=== PATIENT | male | born 1995 | race African-American/Black ===

== ENCOUNTER 2020-05-29 20:03 | Emergency (ER) | payer MEDICAID ==
[~2020-05-29] VITALS: Ht 170.2 cm; Wt 63.0 kg
[2020-05-29] MEDS ORDERED: SODIUM CHLORIDE 0.9% 1,000 ML IV ONE (21:15)
[2020-05-29 21:28] LABS: BASOPHILS % 0.7 % (0.0-2.0); EOSINOPHILS % 2.2 % (0.0-5.0); HEMOGLOBIN. 14.9 g/dL (14.0-18.0); LYMPHOCYTES % 53.2 % (20.0-50.0); MEAN CORPUSCULAR HEMOGLOBIN 33.2 pg (28.0-32.0); MEAN CORPUSCULAR VOLUME 95.8 fL (80.0-94.0); MEAN PLATELET VOLUME 8.5 fl (7.4-10.4); MONOCYTES % 10.2 % (2.0-8.0); NEUTROPHILS % 33.7 % (40.0-76.0); PLATELET 185 x1000/uL (130-400); RED BLOOD CELL COUNT 4.49 mill/uL (4.7-6.1)
[2020-05-29 21:33] LABS: CHLORIDE 104 mEq/L (98-107)
[2020-05-29 22:01] LABS: *BENZODIAZEPINES SCREEN URINE NEGATIVE (NEGATIVE)
[2020-05-29 22:02] LABS: *AMPHETAMINES SCREEN URINE NEGATIVE (NEGATIVE); *COCAINE SCREEN URINE NEGATIVE (NEGATIVE); CANNABINOID URINE SCREEN NEGATIVE (NEGATIVE); METHADONE URINE SCREEN NEGATIVE (NEGATIVE); OPIATES URINE SCREEN NEGATIVE (NEGATIVE); PHENCYCLIDINE URINE SCREEN NEGATIVE (NEGATIVE)
[2020-05-29 22:03] LABS: *BARBITURATES SCREEN URINE NEGATIVE (NEGATIVE)
[2020-05-29 22:30] VITALS: BP 127/87
== END 2020-05-29 22:49 | disposition home or self-care (01) ==
LOC: ER 20:03 → EDBD 20:03 → ER 22:49
DX: R53.1 Weakness (principal); R07.89 Other chest pain; R42 Dizziness and giddiness; I10 Essential (primary) hypertension
CPT/HCPCS: 36415; 80053; 80305; 84484; 85025; 93005; 96360; 99284; J7030